=== PATIENT | male | born 1965 | race African-American/Black ===

== ENCOUNTER 2016-05-28 09:43 | Observation (INO) | payer SELFPAY ==
[2016-05-28] VITALS (11 sets, daily range): BP systolic 142–199; BP diastolic 78–120; PULSE 52–104; RESP 16–21; TEMP 98–98.2; O2SAT 95–99
[~2016-05-28] VITALS: Ht 180.3 cm; Wt 80.0 kg
[~2016-05-28 09:43] MED LIST: AMIT10TA13 PO; DILA8TAB4 PO; HCTZ50TA PO; HYDR-4197 PO; LORTA5 PO; METO50CR PO; METO50TA PO; MOBI7.5T PO; RANI75TA13 PO; ROBA750T3 PO; VALI10TA PO
--- NOTE | 2016-05-28 11:13 | PD ---
HPI Chief Complaint: Abdominal Pain Time Seen by Provider: 10:55 Travel History International Travel<30 days: No Contact w/Intl Traveler<30days: No Traveled to known affect area: No History of Present Illness HPI 50yo M with PMH of ?CAD, HTN, right inguinal hernia ( 7 months) presents to the ED with 2 complaints. Pt has been having nasal congestion, cough and tactile fever for 4 days. States that the coughing is causing his hernia to come out and now has pain in his abdomen. +NBNB vomiting yesterday. Pt also with left sided chest pain that is sharp, worst with exertion and better with rest. Pain is localized in left chest. Pt states he has a heart condition and used to see a ceramic artist years ago but has not seen one for this chest pain. PFSH Past Medical History Asthma: No Heart Rhythm Problems: No Cancer: No Cardiovascular Problems: Yes High Cholesterol: No Chest Pain: No Congestive Heart Failure: No COPD: No Diabetes: No Diminished Hearing: No Endocrine: No Gastrointestinal Disorders: No Genitourinary: No Hiatal Hernia: Yes Hypertension: Yes Immune Disorder: No Implanted Vascular Access Dvce: Yes Musculoskeletal: Yes Neurologic: No Psychiatric: No Reproductive: No Respiratory: No Immunizations Current: Yes Sleep Apnea: No Thyroid Disease: No Past Surgical History Abdominal Surgery: No AICD: No Body Medical Devices: PINS IN LEFT THUMB Cardiac Surgery: No Ear Surgery: No Endocrine Surgery: No Eye Surgery: No Genitourinary Surgery: No Gynecologic Surgery: No Joint Replacement: No Neurologic Surgery: No Oral Surgery: No Pacemaker: No Thoracic Surgery: No Other Surgery: Yes Social History Alcohol Use: Yes (seldom) Tobacco Use: Yes (OCCASIONALLY) Substance Use: Yes Allergies-Medications (Allergen,Severity, Reaction): Coded Allergies: No Known Allergies (Unverified , 05/28/16) Reported Meds & Prescriptions Reported Meds & Active Scripts Active Robaxin-750 (Methocarbamol) 750 Mg Tab 750 Mg PO Q6HR PRN Reported Hctz/Triamteren1 Ta1 1 Tab Tab Unknown Dose PO DAILY Metoprolol Tartrate 50 mg (Metoprolol Tartrate) 50 Mg Tab 50 Mg PO BID Dilaudid 8 mg (Hydromorphone HCl) 8 Mg Tab 8 Mg PO TID Review of Systems Except as stated in HPI: all other systems reviewed are Neg Physical Exam Narrative GEN: 50yo M not in distress. HEAD: Normocephalic, atraumatic. NECK: Trachea midline, no JVD. Skin: Warm and dry. CV: S1, S2. Lungs: CTA b/l, equal breath sounds. Abd: soft, +TTP epigastric region > RLQ and LLQ. No rebound tenderness or guarding. : Right inguinal hernia, soft. No penile discharge. Ext: Soft calf, no lower extremity edema. Data Data Last Documented VS Vital Signs Date Time Temp Pulse Resp B/P Pulse Ox O2 Delivery O2 Flow Rate FiO2 05/28/16 12:30 62 16 142/84 99 Room Air 05/28/16 09:46 98.0 Orders Complete Blood Count With Diff (05/28/16 11:06) Comprehensive Metabolic Panel (05/28/16 11:06) Lipase (05/28/16 11:06) Lactic Acid (05/28/16 11:06) Prothrombin Time / Inr (Pt) (05/28/16 11:06) Act Partial Throm Time (Ptt) (05/28/16 11:06) Urinalysis - C+S If Indicated (05/28/16 11:06) Ct Abd/Pel W Iv Contrast(Rout) (05/28/16 11:06) Iv Access Insert/Monitor (05/28/16 11:06) Ecg Monitoring (05/28/16 11:06) Oximetry (05/28/16 11:06) Sodium Chloride 0.9% Flush (Ns Flush) (05/28/16 11:15) Electrocardiogram (05/28/16 11:06) Chest, Single Ap (05/28/16 11:06) Ketorolac Inj (Toradol Inj) (05/28/16 11:15) Blood Culture (05/28/16 11:06) Influenzae A/B Antigen (05/28/16 11:06) Troponin I (05/28/16 11:25) Iohexol 350 Inj (Omnipaque 350 Inj) (05/28/16 14:07) Aspirin (Aspirin) (05/28/16 14:45) Admit Order (Ed Use Only) (05/28/16 14:44) Labs Laboratory Tests Test 05/28/16 05/28/16 11:45 13:54 White Blood Count 9.4 TH/MM3 Red Blood Count 4.44 MIL/MM3 Hemoglobin 14.6 GM/DL Hematocrit 42.7 % Mean Corpuscular Volume 96.1 FL Mean Corpuscular Hemoglobin 32.9 PG Mean Corpuscular Hemoglobin 34.2 % Concent Red Cell Distribution Width 13.9 % Platelet Count 239 TH/MM3 Mean Platelet Volume 8.2 FL Neutrophils (%) (Auto) 55.7 % Lymphocytes (%) (Auto) 32.5 % Monocytes (%) (Auto) 8.4 % Eosinophils (%) (Auto) 2.6 % Basophils (%) (Auto) 0.8 % Neutrophils # (Auto) 5.2 TH/MM3 Lymphocytes # (Auto) 3.0 TH/MM3 Monocytes # (Auto) 0.8 TH/MM3 Eosinophils # (Auto) 0.2 TH/MM3 Basophils # (Auto) 0.1 TH/MM3 CBC Comment DIFF FINAL Differential Comment Prothrombin Time 11.0 SEC Prothromb Time International 1.0 RATIO Ratio Activated Partial 33.2 SEC Thromboplast Time Sodium Level 141 MEQ/L Potassium Level 3.8 MEQ/L Chloride Level 104 MEQ/L Carbon Dioxide Level 29.9 MEQ/L Anion Gap 7 MEQ/L Blood Urea Nitrogen 6 MG/DL Creatinine 1.15 MG/DL Estimat Glomerular Filtration 81 ML/MIN Rate Random Glucose 93 MG/DL Lactic Acid Level 1.0 mmol/L Calcium Level 8.8 MG/DL Total Bilirubin 0.9 MG/DL Aspartate Amino Transf 18 U/L (AST/SGOT) Alanine Aminotransferase 25 U/L (ALT/SGPT) Alkaline Phosphatase 103 U/L Troponin I LESS THAN 0.02 NG/ML Total Protein 7.6 GM/DL Albumin 3.3 GM/DL Lipase 62 U/L Urine Color YELLOW Urine Turbidity CLEAR Urine pH 6.0 Urine Specific [place] 1.014 Urine Protein TRACE mg/dL Urine Glucose (UA) NEG mg/dL Urine Ketones NEG mg/dL Urine Occult Blood NEG Urine Nitrite NEG Urine Bilirubin NEG Urine Urobilinogen 4.0 MG/DL Urine Leukocyte Esterase MOD Urine RBC 1 /hpf Urine WBC 6 /hpf Urine Squamous Epithelial 1 /hpf Cells Urine Mucus FEW /lpf Microscopic Urinalysis Comment CULT NOT INDICATED MDM Medical Decision Making Medical Screen Exam Complete: Yes Emergency Medical Condition: Yes Interpretation(s) EKG: Sinus bradycardia at 55bpm. LAD. LAFB. TWI V5-V6. Unchanged from 2012. Differential Diagnosis Influenza vs. URI vs. PNA vs. ACS vs. pancreatitis vs. viral syndrome vs. incarcerated hernia Narrative Course 50yo M with left sided chest pain that is atypical but has risk factors such as HTN, former smoker and ?CAD. Pt has URI like symptoms as well. CXR showed no acute disease. CTa/p showed large inguinal hernia on right containing bowel that goes into scrotum. No other significant abnormality appreciated. I placed pt in trandelenberg position and was able to reduce his right inguinal hernia. Pt does not have any more pain after reduction. Labs reviewed, no leukocytosis. Troponin negative. Lactic acid 1.0. UA showed moderate leukocyte but WBC is only 6 and culture is not indicated. VS stable. From the inguinal hernia perspective, pt can be discharged with follow up with general surgery. However, I am concern with his chest pain that may be musculoskeletal from coughing but he does have risk factors and I would like to admit him for observation for chest pain. Pt agrees with plan. Diagnosis Primary Impression: Chest pain Qualified Code: R07.9 - Chest pain, unspecified type Admitting Information Admitting Physician Requests: Observation Patient Instructions: General Instructions Departure Forms: Tests/Procedures Additional Instructions: Please follow up with surgery clinic as outpatient for your inguinal hernia that has been reduced in the ED. Please return to the ED if symptoms worsen. Suzette Neri DO May 28, 2016 11:13 Admitting Physician Requests: Observation Suzette eNri DO May 28, 2016 11:13
[2016-05-28] MEDS ORDERED: KETOROLAC TROMETHAMINE 30 MG/ML (IVP) VIAL IVP ONE (11:15)
[2016-05-28] MEDS ORDERED: SODIUM CHLORIDE 0.9% FLUSH 5 ML FLUSH IVF PRN ×3 (11:15→16:15)
--- NOTE | 2016-05-28 12:04 | RADRPT ---
EXAM DATE/TIME: 05/28/2016 11:26 [facility] COMPARISON: CHEST SINGLE AP, February 08, 2015, 5:07. INDICATIONS : Chest pain, shortness of breath, and cough. MEDICAL HISTORY : None. SURGICAL HISTORY : None. ENCOUNTER: Initial ACUITY: 1 week PAIN SCORE: 2/10 LOCATION: chest FINDINGS: A single view of the chest demonstrates the lungs to be symmetrically aerated without evidence of mas s, infiltrate or effusion. The cardiomediastinal contours are unremarkable. Osseous structures are intact. CONCLUSION: No acute disease. Yury Le MD FACR on May 28, 2016 at 12:03 Board Certified Radiologist. This report was verified electronically.
[2016-05-28 12:14] LABS: AUTOMATED NEUTROPHIL # 5.2 TH/MM3 (1.8-7.7); BASOPHIL # 0.1 TH/MM3 (0-0.2); BASOPHIL % 0.8 % (0.0-2.0); EOSINOPHIL # 0.2 TH/MM3 (0-0.4); EOSINOPHIL % 2.6 % (0.0-4.0); HEMATOCRIT 42.7 % (39.0-51.0); HEMO FLAGS DIFF FINAL; LYMPH % 32.5 % (9.0-44.0); MEAN CELL VOLUME 96.1 FL (80.0-100.0); MEAN CORPUSCULAR HEMOGLOBIN 32.9 PG (27.0-34.0); MEAN CORPUSCULAR HGB CONC 34.2 % (32.0-36.0); MONO % 8.4 % (0.0-8.0); NEUT % 55.7 % (16.0-70.0); PLATELET COUNT 239 TH/MM3 (150-450); RED BLOOD COUNT 4.44 MIL/MM3 (4.50-5.90); RED CELL DISTRIBUTION WIDTH 13.9 % (11.6-17.2); WHITE BLOOD COUNT 9.4 TH/MM3 (4.0-11.0)
[2016-05-28 12:23] LABS: APTT (PATIENT) 33.2 SEC (24.3-30.1)
[2016-05-28 12:50] LABS: ALKALINE PHOSPHATASE 103 U/L (45-117); ALT (GPT) 25 U/L (12-78); ANION GAP 7 MEQ/L (5-15); AST (GOT) 18 U/L (15-37); BICARBONATE 29.9 MEQ/L (21.0-32.0); BLOOD UREA NITROGEN 6 MG/DL (7-18); CHLORIDE 104 MEQ/L (98-107); GLOMERULAR FILTRATION RATE 81 ML/MIN (>89); POTASSIUM 3.8 MEQ/L (3.5-5.1); SODIUM (NA) 141 MEQ/L (136-145); TOTAL BILIRUBIN ADULT 0.9 MG/DL (0.2-1.0)
[2016-05-28] MEDS ORDERED: IOHEXOL 350 MG/ML 10 ML VIAL (for RAD DIAG) IV ONE (14:07)
[2016-05-28 14:17] LABS: BLOOD, URINE NEG (NEG); GLUCOSE,URINE NEG (NEG); KETONE, URINE NEG (NEG); MUCUS URINE FEW /lpf (OCC); NITRITE,URINE NEG (NEG); SQUAMOUS EPITHELIAL CELL URINE 1 /hpf (0-5); URINE COLOR YELLOW (YELLW/STRAW)
--- NOTE | 2016-05-28 14:21 | RADRPT ---
EXAM DATE/TIME: 05/28/2016 13:52 [facility] COMPARISON: No previous studies available for comparison. INDICATIONS : Abdomen pain. IV CONTRAST: 90 cc Omnipaque 350 (iohexol) IV ORAL CONTRAST: No oral contrast ingested. RADIATION DOSE: 9.96 CTDIvol (mGy) MEDICAL HISTORY : Hernia, hiatal. Cerebrovascular disease. SURGICAL HISTORY : None. ENCOUNTER: Initial ACUITY: 1 day PAIN SCALE: 6/10 LOCATION: Bilateral abdomen. TECHNIQUE: Volumetric scanning of the abdomen and pelvis was performed. Using automated exposure control and adjustment of the mA and/or kV according to patient size, radiation dose was kept as low as reasonably achievable to obtain optimal diagnostic quality images. FINDINGS: The lung bases are clear. The liver is free of focal defects. Spleen, pancreas, adrenal glands and kidneys are unremarkable. There is symmetrical renal function. Right and left ureters pursue an unobstructed course through the abdomen. There is no ascites or roney nopathy appreciated. The patient does have a large hernia on the left containing bowel that extends into the scrotum. Thi s does not appear to be incarcerated. However, significant bowel is present within this. CONCLUSION: 1. Large inguinal hernia on the right containing bowel that goes into the scrotum. 2. No other significant abnormality is appreciated. Yury Le MD FACR on May 28, 2016 at 14:12 Board Certified Radiologist. This report was verified electronically.
[2016-05-28 14:24] LABS: COMMENT (UR) CULT NOT INDICATED; CULTURE IF INDICATED CULT NOT INDICATED
[2016-05-28] MEDS ORDERED: ASPIRIN 325 MG TAB PO ONE (14:45)
[2016-05-28] MEDS ORDERED: hydrALAZINE HCL 20 MG/ML VIAL IV PUSH ONE (16:00)
[2016-05-28] MEDS ORDERED: METOPROLOL TARTRATE 100 MG TAB PO ONE (16:00)
[2016-05-28] MEDS ORDERED: ACETAMINOPHEN 500 MG CPLT PO PRN (16:15)
[2016-05-28] MEDS ORDERED: ACETAMINOPHEN/HYDROcodone 325 MG/7.5 MG TAB PO PRN (16:15)
[2016-05-28] MEDS ORDERED: MORPHINE SULFATE 4 MG/ML INJ IV PUSH PRN (16:15)
[2016-05-28] MEDS ORDERED: ONDANSETRON HCL 4 MG/2 ML VIAL IV PRN (16:15)
[2016-05-28] MEDS ORDERED: RESP: ALBUTEROL 2.5 MG/IPRATROPIUM 0.5 MG NEB (SCH) INH ONE ×2 (16:15)
[2016-05-28] MEDS ORDERED: RESP: ALBUTEROL 2.5 MG/IPRATROPIUM 0.5 MG NEB (PRN) INH (16:15)
[2016-05-28] MEDS ORDERED: METHOCARBAMOL 500 MG TAB PO PRN (16:15)
[2016-05-28] MEDS ORDERED: ALPRAZolam 0.25 MG TAB PO PRN (16:15)
[2016-05-28] MEDS: PANTOPRAZOLE SOD 40 MG DELAYED RELEASE TAB PO SCH (16:28)
[2016-05-28] MEDS ORDERED: PILL SPLITTER OTHER PRN (16:30)
[2016-05-28] MEDS ORDERED: methylPREDNISolone SOD SUCC 125 MG/2 ML VIAL IV PUSH ONE (16:30)
[2016-05-28] MEDS ORDERED: DOXYCYCLINE HYCLATE 100 MG CAP PO ONE (16:30)
[2016-05-28 17:02] LABS: CREATINE KINASE 195 U/L (39-308)
[2016-05-28 17:15] LABS: CKMB 1.7 NG/ML (0.5-3.6)
[2016-05-28] MEDS ORDERED: amLODIPine BESYLATE 5 MG TAB PO ONE ×2 (18:30→23:00)
[2016-05-28 19:54] LABS: CREATINE KINASE 189 U/L (39-308)
[2016-05-28 20:06] LABS: CKMB 1.3 NG/ML (0.5-3.6)
[2016-05-28] MEDS ORDERED: SODIUM CHLORIDE 0.9% FLUSH 5 ML FLUSH IVF SCH (21:00)
[2016-05-28] MEDS ORDERED: METOPROLOL TARTRATE 50 MG TAB PO SCH (21:00)
--- NOTE | 2016-05-28 21:30 | EKG ---
Date Performed: 05/28/2016 Time Performed: 11:23:06 PTAGE: 50 years EKG: SINUS BRADYCARDIA LEFT ANTERIOR FASCICULAR BLOCK MODERATE T-WAVE ABNORMALITY MAY BE DUE TO LEFT VENTRICULAR HYPERTROPHY &/OR ISCHEMIA LEFT AXIS DEVIATION VOLTAGE FOR LEFT VENTRICULAR HYPERTROP HY ABNORMAL ECG PREVIOUS TRACING : 12/13/2012 16.17 DOCTOR: Franklin Dubois Interpretating Date/Time 05/28/2016 21:29:41
[2016-05-28] MEDS: SODIUM CHLORIDE 0.9% FLUSH 5 ML FLUSH IVF SCH (21:32)
--- NOTE | 2016-05-28 21:45 | EKG ---
Date Performed: 05/28/2016 Time Performed: 18:16:54 PTAGE: 50 years EKG: SINUS BRADYCARDIA LEFT ANTERIOR FASCICULAR BLOCK LEFT AXIS DEVIATION MODERATE T-WAVE ABNORM ALITY MAY BE DUE TO LEFT VENTRICULAR HYPERTROPHY &/OR ISCHEMIA VOLTAGE FOR LEFT VENTRICULAR HYPERTROP HY ABNORMAL ECG PREVIOUS TRACING : 05/28/2016 15.36 DOCTOR: Franklin Dubois Interpretating Date/Time 05/28/2016 21:44:06
[2016-05-28] MEDS ORDERED: cloNIDine HCL 0.2 MG TAB PO PRN (23:00)
[2016-05-28] MEDS: DOXYCYCLINE HYCLATE 100 MG TAB PO SCH (23:25)
[2016-05-29 00:35] VITALS: PULSE 64
[2016-05-29 04:00] VITALS: PULSE 60
[2016-05-29 04:40] VITALS: BP 164/78; PULSE 102; PULSE 74; RESP 18; TEMP 97.8; O2SAT 98
[2016-05-29 08:00] VITALS: BP 156/93; PULSE 50; PULSE 54; RESP 18; TEMP 98.2; O2SAT 93
[2016-05-29 08:37] VITALS: O2SAT 97
[2016-05-29] MEDS ORDERED: amLODIPine BESYLATE 5 MG TAB PO SCH (09:00)
[2016-05-29] MEDS ORDERED: ASPIRIN 325 MG TAB PO SCH (09:00)
[2016-05-29] MEDS ORDERED: TRIAMTERENE/HCTZ 37.5 MG/25 MG CAP PO SCH (09:00)
[2016-05-29] MEDS: SODIUM CHLORIDE 0.9% FLUSH 5 ML FLUSH IVF SCH ×2 (10:05→13:23)
[2016-05-29] MEDS: PANTOPRAZOLE SOD 40 MG DELAYED RELEASE TAB PO SCH (10:09)
[2016-05-29] MEDS ORDERED: REGADENOSON INJ 0.4 MG/5 ML SYR ONE (10:39)
[2016-05-29 11:42] VITALS: BP 178/98; PULSE 65; RESP 18; TEMP 98; O2SAT 94
--- NOTE | 2016-05-29 12:04 | RADRPT ---
EXAM DATE/TIME: 05/29/2016 10:22 [facility] COMPARISON: No previous studies available for comparison. INDICATIONS : Left sided chest pain. Angina. DOSE: 25.4 mCi Tc99m Myoview at stress. 8.5 mCi Tc99m Myoview at rest. 0.4 mg Lexiscan STRESS SYMPTOMS: Dyspnea and heart racing. EJECTION FRACTION: 60% MEDICAL HISTORY : Hypertension. Hernia, hiatal. SURGICAL HISTORY : Left thumb. ENCOUNTER: Initial ACUITY: 1 day PAIN SCALE: 6/10 LOCATION: Left chest TECHNIQUE: The patient underwent pharmacologic stress with infusion of prescribed dose. Continuous ECG tracing was monitored during stress. Gated SPECT imaging was performed after stress and conventional SPECT i maging was performed at rest. The examination was performed on a SPECT/CT scanner, both attenuation and non-corrected datasets were reviewed. FINDINGS: The best perfused myocardium is the septum followed by the inferior wall. Moderate gut activity does obscure a large portion of the inferior wall. There is no redistribution to suggest stress-induced ischemia. There are no fixed defects to suggest an infarction. Ejection fraction is calculated at 60%. CONCLUSION: 1. Negative for stress-induced ischemia. RISK CATEGORY: Low risk category. Yury Le MD FACR on May 29, 2016 at 11:57 Board Certified Radiologist. This report was verified electronically.
[2016-05-29] MEDS ORDERED: CLON.2 PO (12:25)
[2016-05-29] MEDS ORDERED: AMLO10TA2 PO (12:25)
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
--- NOTE | 2016-05-29 12:33 | TR ---
Date Performed: 05/29/2016 Time Performed: 10:50:53 DOCTOR: Franklin Dubois DRUG LIST: CLINICAL HISTORY: CHEST PAIN REASON FOR TEST: CHEST PAIN REASON FOR ENDING: OBSERVATION: CONCLUSION: Lexiscan stress test was performed under standard four minute protocol. Radionuclide was injected one minute prior to ending the test. Developed dyspnea and racing of the heart, blood p ressure was mildly elevated. Rare to occassional PACs were noted. No electrocardiographic abnormaliti es were present to suggest ischemia. Recovery was quick and uneventful with resolutiion of symptoms, systolic blood pressure remained mildly elevated. Nuclear imaging and interpretation are pending. COMMENTS:
[2016-05-29] MEDS: DOXYCYCLINE HYCLATE 100 MG TAB PO SCH (13:22)
--- NOTE | 2016-05-30 07:01 | EKG ---
Date Performed: 05/28/2016 Time Performed: 15:36:26 PTAGE: 50 years EKG: SINUS BRADYCARDIA WITH OCCASIONAL SUPRAVENTRICULAR PREMATURE COMPLEXES LEFT ANTERIOR FASCIC ULAR BLOCK MODERATE T-WAVE ABNORMALITY MAY BE DUE TO LEFT VENTRICULAR HYPERTROPHY &/OR ISCHEMIA LEFT AXIS DEVIATION VOLTAGE FOR LEFT VENTRICULAR HYPERTROPHY ABNORMAL ECG PREVIOUS TRACING : 05/28/2016 11.23 DOCTOR: Franklin Dubois Interpretating Date/Time 05/30/2016 07:00:32
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
== END 2016-05-29 17:07 | disposition home or self-care (01) ==
LOC: NEDAMB 09:43 → NEDA 14:46 → NEPHCDU 18:01
PROVIDERS: ADMIT Family Medicine; ATTEND Family Medicine
DX: R07.9 Chest pain, unspecified (principal); J40 Bronchitis, not specified as acute or chronic; I10 Essential (primary) hypertension; I25.10 Atherosclerotic heart disease of native coronary artery without angina pectoris; M54.9 Dorsalgia, unspecified; G89.29 Other chronic pain; K40.90 Unilateral inguinal hernia, without obstruction or gangrene, not specified as recurrent; F14.19 Cocaine abuse with unspecified cocaine-induced disorder; Z72.0 Tobacco use
CPT/HCPCS: 71010; 74177; 78452; 80053; 81001; 82550; 82552; 83605; 83690; 84484; 85025; 85610; 85730; 87040; 87804; 93005; 93017; 94664; 96374; 99285; A9502; G0378; J0360; J1885; J2270; J2785; J2930; Q9967

== ENCOUNTER 2017-02-26 15:07 | Inpatient (IN) | payer SELFPAY ==
[~2017-02-26] VITALS: Ht 180.3 cm; Wt 90.3 kg
[~2017-02-26 15:07] MED LIST changes: -AMIT10TA13 PO; +AMLO10TA2 PO; +CLON.2 PO; -HYDR-4197 PO; -LORTA5 PO; -METO50CR PO; -METO50TA PO; -MOBI7.5T PO; -RANI75TA13 PO; -VALI10TA PO
[2017-02-26 15:10] VITALS: BP 161/90; PULSE 70; RESP 16; TEMP 98.7; O2SAT 96
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
[2017-02-26 17:18] VITALS: BP 167/101; PULSE 62; RESP 16; O2SAT 97
[2017-02-26] MEDS ORDERED: KETOROLAC TROMETHAMINE 60 MG/2 ML (IM) VIAL IM ONE (17:30)
[2017-02-26] MEDS ORDERED: METO100T PO (17:58)
[2017-02-26] MEDS ORDERED: TRIA1CAP6 PO (17:58)
[2017-02-26] MEDS ORDERED: DILA8TAB4 PO (17:58)
[2017-02-26] MEDS ORDERED: MELO7.5T4 PO (17:58)
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
[2017-02-26 18:42] VITALS: BP 164/104; PULSE 65; RESP 17; O2SAT 96
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
[2017-02-26] MEDS ORDERED: LACTULOSE SYRUP 20 GM/30 ML CUP PO PRN (19:30)
[2017-02-26] MEDS ORDERED: ONDANSETRON HCL 4 MG/2 ML VIAL IVP PRN (19:30)
[2017-02-26] MEDS ORDERED: SENNOSIDES 8.6 MG TAB PO PRN (19:30)
[2017-02-26] MEDS ORDERED: MAGNESIUM HYDROXIDE SUSP 30 ML CUP PO PRN (19:30)
[2017-02-26] MEDS ORDERED: SODIUM CHLORIDE 0.9% FLUSH 10 ML FLUSH IV FLUSH PRN (19:30)
[2017-02-26] MEDS ORDERED: MORPHINE SULFATE 4 MG/ML INJ IV PUSH PRN (19:30)
[2017-02-26] MEDS ORDERED: BISACODYL 10 MG SUPP RECTAL PRN (19:30)
[2017-02-26] MEDS ORDERED: ACETAMINOPHEN 1000 MG/100 ML 100 ML IV PRN (19:30)
[2017-02-26] MEDS: MORPHINE SULFATE 4 MG/ML INJ IV PUSH PRN (19:55)
[2017-02-26] MEDS: SODIUM CHLOR 0.9% 1000 ML INJ 1,000 ML IV SCH (19:55)
[2017-02-26 20:07] LABS: AUTOMATED NEUTROPHIL # 2.9 TH/MM3 (1.8-7.7); BASOPHIL # 0.1 TH/MM3 (0-0.2); BASOPHIL % 0.7 % (0.0-2.0); EOSINOPHIL # 0.5 TH/MM3 (0-0.4); EOSINOPHIL % 6.4 % (0.0-4.0); HEMATOCRIT 39.1 % (39.0-51.0); HEMO FLAGS DIFF FINAL; LYMPH % 46.5 % (9.0-44.0); LYMPHOCYTE # 3.4 TH/MM3 (1.0-4.8); MEAN CELL VOLUME 97.5 FL (80.0-100.0); MEAN CORPUSCULAR HEMOGLOBIN 32.5 PG (27.0-34.0); MEAN CORPUSCULAR HGB CONC 33.3 % (32.0-36.0); MONO % 6.2 % (0.0-8.0); NEUT % 40.2 % (16.0-70.0); PLATELET COUNT 231 TH/MM3 (150-450); RED BLOOD COUNT 4.01 MIL/MM3 (4.50-5.90); RED CELL DISTRIBUTION WIDTH 14.4 % (11.6-17.2); WHITE BLOOD COUNT 7.3 TH/MM3 (4.0-11.0)
[2017-02-26 20:19] LABS: INTERNATIONAL NORMALIZED RATIO 0.9 RATIO; PROTHROMBIN TIME - PATIENT 10.2 SEC (9.8-11.6)
[2017-02-26 20:40] VITALS: BP 178/97; PULSE 62; RESP 18; TEMP 97.3; O2SAT 96
[2017-02-26 20:48] LABS: ALT (GPT) 30 U/L (12-78)
[2017-02-26 20:50] LABS: ALKALINE PHOSPHATASE 112 U/L (45-117); ANION GAP 6 MEQ/L (5-15); AST (GOT) 37 U/L (15-37); BICARBONATE 25.8 MEQ/L (21.0-32.0); BLOOD UREA NITROGEN 14 MG/DL (7-18); CHLORIDE 105 MEQ/L (98-107); GLOMERULAR FILTRATION RATE 79 ML/MIN (>89); SODIUM (NA) 137 MEQ/L (136-145); TOTAL BILIRUBIN ADULT 0.5 MG/DL (0.2-1.0)
[2017-02-26] MEDS: DOCUSATE SODIUM 50 MG/SENNA 8.6 MG TAB PO SCH (21:25)
[2017-02-26] MEDS: SODIUM CHLORIDE 0.9% FLUSH 10 ML FLUSH IV FLUSH SCH (21:25)
[2017-02-26] MEDS ORDERED: POVIDONE IODINE 5% (ANTISEPSIS KIT) 4 APPLICATIONS EACH NARE PRN (22:15)
[2017-02-26] MEDS ORDERED: INSULIN HUMAN REGULAR 1,000 UNITS/10 ML VIAL SQ PRN (22:15)
[2017-02-26] MEDS ORDERED: LACTATED RINGER'S 1000 ML IV PRN (22:15)
[2017-02-26] MEDS ORDERED: CHLORHEXIDINE GLUCONATE 2 % 1 PACK (2 CLOTHS) TOPICAL PRN (22:15)
[2017-02-26] MEDS ORDERED: NIFEdipine 30 MG SUSTAINED RELEASE TAB PO ONE (22:45)
[2017-02-26] MEDS ORDERED: NIFEdipine 60 MG SUSTAINED RELEASE TAB PO ONE (22:45)
[2017-02-27] VITALS (8 sets, daily range): BP systolic 130–180; BP diastolic 82–98; PULSE 52–64; RESP 17–18; TEMP 96.2–96.8; O2SAT 97–98
[2017-02-27] MEDS: MORPHINE SULFATE 4 MG/ML INJ IV PUSH PRN ×4 (00:23→23:09)
[2017-02-27] MEDS ORDERED: ENALAPRILAT 2.5 MG/2 ML VIAL IV PUSH ONE (01:00)
[2017-02-27] MEDS: SODIUM CHLOR 0.9% 1000 ML INJ 1,000 ML IV SCH ×3 (05:01→20:31)
[2017-02-27] MEDS: SODIUM CHLORIDE 0.9% FLUSH 10 ML FLUSH IV FLUSH SCH ×2 (07:41→23:09)
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
[2017-02-27] MEDS: DOCUSATE SODIUM 50 MG/SENNA 8.6 MG TAB PO SCH ×2 (10:10→21:00)
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
[2017-02-27] MEDS ORDERED: NEOSTIGMINE 3 MG/3 ML SYR IV ONE (12:00)
[2017-02-27] MEDS ORDERED: LIDOCAINE HCL 1% PF 5 ML AMPULE OTHER ONE (12:00)
[2017-02-27] MEDS ORDERED: ONDANSETRON HCL 4 MG/2 ML VIAL IV PUSH ONE (12:00)
[2017-02-27] MEDS ORDERED: GLYCOPYRROLATE 1 MG/5 ML SYRINGE IV PUSH ONE (12:00)
[2017-02-27] MEDS ORDERED: ROCURONIUM INJ 50 MG/5 ML SYRINGE IV PUSH ONE (12:00)
[2017-02-27] MEDS ORDERED: LACTATED RINGER'S 1000 ML INJ 1,000 ML IV ONE (12:00)
[2017-02-27] MEDS ORDERED: PROPOFOL 200 MG/20 ML AMP IV ONE (12:00)
[2017-02-27] MEDS ORDERED: MIDAZOLAM HCL 2 MG/2 ML VIAL IV ONE (12:00)
[2017-02-27] MEDS ORDERED: DEXAMETHASONE SOD PHOS 4 MG/ML VIAL IV ONE (12:00)
[2017-02-27] MEDS ORDERED: KETOROLAC TROMETHAMINE 30 MG/ML (IVP) VIAL IV PUSH ONE (12:00)
--- NOTE | 2017-02-27 12:51 | EKG ---
Date Performed: 02/26/2017 Time Performed: 22:01:14 PTAGE: 51 years EKG: SINUS BRADYCARDIA POSSIBLE RIGHT VENTRICULAR CONDUCTION DELAY LEFT ANTERIOR FASCICULAR BLOC K SEPTAL MYOCARDIAL INFARCTION , OF INDETERMINATE AGE MODERATE T-WAVE ABNORMALITY, CONSIDER ANTEROLAT ERAL ISCHEMIA MODERATE T-WAVE ABNORMALITY, CONSIDER INFERIOR ISCHEMIA ABNORMAL ECG Compared to prior tracing no significant change PREVIOUS TRACING : 05/28/2016 18.16 DOCTOR: Trav Flores Interpretating Date/Time 02/27/2017 12:50:44
[2017-02-27] MEDS ORDERED: CHLORHEXIDINE GLUCONATE 0.12% 15 ML CUP ONE (17:24)
[2017-02-27] MEDS ORDERED: ceFAZolin INJ 1,000 MG VIAL ONE (17:24)
[2017-02-27] MEDS ORDERED: BACITRACIN TOP OINT 15 GM TUBE ONE (17:25)
[2017-02-27] MEDS ORDERED: PHENYLEPHRINE HCL 0.25% NASAL SPRAY 15 ML BTL ONE (18:10)
[2017-02-27] MEDS ORDERED: ACETAMINOPHEN 1000 MG/100 ML 100 ML IV ONE (18:15)
[2017-02-27] MEDS ORDERED: HYDROmorphone HCL PF 2 MG/ML VIAL ONE (18:43)
[2017-02-27] MEDS ORDERED: LIDOCAINE 2%/EPINEPHrine PF 1:200,000 20ML SDV INFIL ONE (18:49)
--- NOTE | 2017-02-27 19:47 | HHI.PR ---
Immediate Post Op Note Procedure Date: Feb 27, 2017 Pre Op Diagnosis: left mandible - subcondylar fracture Post Op Diagnosis: sherley Surgeon: Lauri Pastrana Well Reactivator Operator(s): jyothi sanchez Procedure: closed reduction of left mandible - subcondylar fracture Complications: none Specimen(s) removed: none Estimated blood loss: 5cc Anesthesia: General, Local (2%lidocaine with 1:200,000 epi 5 cc) Drains: None Patient to: PACU Patient Condition: Good Date/Time of Procedure: SEE SURGICAL CARE RECORD Lauri Pastrana DMD Feb 27, 2017 19:47
[2017-02-27] MEDS ORDERED: DO NOT ADM ANY ANTICOAGULANT DRUGS PRN (20:15)
[2017-02-27] MEDS ORDERED: HYDROmorphone HCL PF 1 MG/ML VIAL IV PRN (20:15)
[2017-02-27] MEDS ORDERED: hydrALAZINE HCL 20 MG/ML VIAL IV PRN (20:15)
[2017-02-27] MEDS ORDERED: methylPREDNISolone SOD SUCC 125 MG/2 ML VIAL IV ONE (21:00)
[2017-02-27] MEDS ORDERED: diphenhydrAMINE HCL 50 MG/ML VIAL IV PUSH PRN (23:15)
[2017-02-28] MEDS ORDERED: HYDROmorphone HCL PF 1 MG/ML VIAL IV PUSH ONE (00:15)
[2017-02-28] MEDS: MORPHINE SULFATE 4 MG/ML INJ IV PUSH PRN ×4 (03:16→11:22)
[2017-02-28 03:25] VITALS: O2SAT 95
[2017-02-28 04:00] VITALS: BP 161/90; PULSE 59; RESP 17; TEMP 96.4; O2SAT 96
--- NOTE | 2017-02-28 07:46 | HHI.PR ---
Subjective Remarks POD 1 s/p closed reduction of left mandible subcondylar fracture pt seen and examined aaox3, nad , reports soreness tolerating po Objective Vital Signs Date Time Temp Pulse Resp B/P (MAP) Pulse Ox O2 Delivery O2 Flow Rate FiO2 02/28/17 04:00 96.4 59 17 161/90 (113) 96 02/28/17 03:25 95 02/27/17 21:15 96.2 62 17 156/83 (107) 98 02/27/17 20:32 59 11 173/96 (121) 98 Nasal Cannula 4 02/27/17 20:30 55 15 175/110 (131) 98 Nasal Cannula 4 02/27/17 20:15 60 9 183/103 (129) 91 Nasal Cannula 4 02/27/17 20:00 51 9 159/97 (117) 98 Simple Mask 10 02/27/17 19:45 54 8 162/97 (118) 97 Simple Mask 10 02/27/17 19:41 97.5 58 10 177/101 (126) 95 Simple Mask 10 02/27/17 16:00 96.4 57 17 153/90 (111) 98 02/27/17 11:45 96.4 64 17 158/94 (115) 98 02/27/17 08:03 96.6 62 17 130/82 (98) 97 I/O 02/27/17 02/27/17 02/27/17 02/28/17 02/28/17 02/28/17 07:00 15:00 23:00 07:00 15:00 23:00 Intake Total 737 ml 1000 ml 1700 ml 560 ml Output Total 500 ml 5 ml 450 ml Balance 237 ml 1000 ml 1695 ml 110 ml Intake Oral 0 ml 0 ml 560 ml IV Total 737 ml 1000 ml 1000 ml Other 700 ml Output Urine Total 500 ml 450 ml Other 5 ml # Voids 4 # Bowel Movements 0 0 Result Diagram: 02/26/17 1950 02/26/171949 Objective Remarks mild left facial edema intraorally, tissues pink/well perfused bite in occlusion, arch arch bars and wires in position no edema/heme noted wire cutters noted - taped to head of bed/wall Assessment and Plan Assessment and Plan pod 1 s/p closed reduction left mandible subcondylar fracture f/up dr pastrana 1 week [facility]*- send pt home with wire cutters wires cutters with pt at all times for emergency airway management maintain good oral hygiene full liquid diet ice left face - 20 min on 20 min off x 24 hrs d/c rx - hydrocodone 7.5/325 per 15 ml - 15 ml po q 6 h prn pain 200 ml (in chart) Lauri Pastrana DMD Feb 28, 2017 07:46
[2017-02-28] MEDS: DOCUSATE SODIUM 50 MG/SENNA 8.6 MG TAB PO SCH (07:47)
[2017-02-28] MEDS: SODIUM CHLORIDE 0.9% FLUSH 10 ML FLUSH IV FLUSH SCH (07:47)
[2017-02-28] MEDS: METOPROLOL TARTRATE 100 MG TAB PO SCH ×2 (09:00→15:19)
[2017-02-28] MEDS ORDERED: cloNIDine HCL 0.1 MG TAB PO PRN (09:00)
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
[2017-02-28 10:00] VITALS: BP 169/102; PULSE 66; RESP 18; TEMP 96.7; O2SAT 98
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
[2017-02-28] MEDS ORDERED: METO-338 PO (11:20)
[2017-02-28] MEDS ORDERED: TRIA1CAP6 PO (11:20)
[2017-02-28] MEDS ORDERED: PERI8.6T PO (11:23)
[2017-02-28] MEDS ORDERED: PERI0.126 SWISH-SPIT (11:23)
[2017-02-28] MEDS ORDERED: MORP1SOL3 PO (11:23)
[2017-02-28] MEDS: SODIUM CHLOR 0.9% 1000 ML INJ 1,000 ML IV SCH (11:30)
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
[2017-02-28] MEDS ORDERED: [UNRECOGNIZED DRUG - SUPPLY] (11:51)
[2017-02-28 12:00] VITALS: BP 183/100; PULSE 73; RESP 18; TEMP 95.9; O2SAT 96
[2017-02-28 16:26] VITALS: BP 195/109; PULSE 59; RESP 16; TEMP 97.1; O2SAT 97
[2017-02-28 18:07] VITALS: BP 180/85
== END 2017-02-28 19:45 | disposition home or self-care (01) | DRG 158 ==
LOC: NEPD 15:07 → NEDA 19:07 → OBSVTOIN 19:18 → N06B 20:15
PROVIDERS: ADMIT Hospitalist; ATTEND Hospitalist
PROC: 0NSV35Z Reposition Left Mandible with External Fixation Device, Percutaneous Approach (ICD-10-PCS; principal; 2017-02-27 18:18)
DX: S02.622A Fracture of subcondylar process of left mandible, initial encounter for closed fracture (principal); S06.0X1A Concussion with loss of consciousness of 30 minutes or less, initial encounter; I10 Essential (primary) hypertension; Y04.2XXA Assault by strike against or bumped into by another person, initial encounter; F17.210 Nicotine dependence, cigarettes, uncomplicated; K02.9 Dental caries, unspecified; Y04.0XXA Assault by unarmed brawl or fight, initial encounter
CPT/HCPCS: 70450; 70486; 80053; 85025; 85610; 93005; 96374; 96376; J0131; J0360; J0690; J1100; J1170; J1200; J1885; J2250; J2270; J2405; J2710; J2930; J3010; J7030; J7120

== ENCOUNTER 2017-08-04 18:31 | Emergency (ER) | payer SELFPAY ==
[~2017-08-04] VITALS: Ht 180.3 cm; Wt 91.0 kg
[~2017-08-04 18:31] MED LIST changes: -AMLO10TA2 PO; -CLON.2 PO; -HCTZ50TA PO; +MELO7.5T27 PO; +METO-338 PO; +MORP1SOL3 PO; +PERI0.126 SWISH-SPIT; +PERI8.6T PO; -ROBA750T3 PO; +TRIA1CAP6 PO; +[UNRECOGNIZED DRUG - SUPPLY]
[2017-08-04] MEDS ORDERED: IOHEXOL 350 MG/ML 10 ML VIAL (for RAD DIAG) IVCONTRAST ONE (18:32)
[2017-08-04 19:08] VITALS: BP 187/93; PULSE 58; RESP 16; TEMP 98.6; O2SAT 97
[2017-08-04] MEDS ORDERED: TIZA4CAP3 PO (20:46)
[2017-08-04] MEDS ORDERED: SODIUM CHLOR 0.9% 1000 ML INJ 1,000 ML IV SCH (20:50)
--- NOTE | 2017-08-04 20:58 | PD ---
HPI Chief Complaint: Abdominal Pain Time Seen by Provider: 20:43 Travel History International Travel<30 days: No Contact w/Intl Traveler<30days: No Traveled to known affect area: No History of Present Illness HPI 52-year-old male here for evaluation of pain an increasing size of his right inguinal hernia. He states he is usually able to reduce the hernia, however today he noticed that it is significantly larger and he is not able to fully reduce it. He states it is affecting his ability to urinate. He feels nauseous. He has not vomited. Last bowel movement was 2 days ago. Pain is severe, constant, worse with movement and palpation. He denies history of abdominal surgeries. PFSH Past Medical History Asthma: No Heart Rhythm Problems: No Cancer: No Cardiovascular Problems: Yes High Cholesterol: No Chest Pain: No Congestive Heart Failure: No COPD: No Diabetes: No Diminished Hearing: No Endocrine: No Gastrointestinal Disorders: No Genitourinary: No Hiatal Hernia: Yes Hypertension: Yes Immune Disorder: No Implanted Vascular Access Dvce: Yes Musculoskeletal: Yes Neurologic: No Psychiatric: No Reproductive: No Respiratory: No Immunizations Current: Yes Sleep Apnea: No Thyroid Disease: No Tetanus Vaccination: Unknown Influenza Vaccination: No Past Surgical History Abdominal Surgery: No AICD: No Body Medical Devices: PINS IN LEFT THUMB Cardiac Surgery: No Ear Surgery: Yes (EYEDRUM SURGERY) Endocrine Surgery: No Eye Surgery: No Genitourinary Surgery: No Gynecologic Surgery: No Joint Replacement: No Neurologic Surgery: No Oral Surgery: No Pacemaker: No Thoracic Surgery: No Social History Alcohol Use: Yes (RARELY) Tobacco Use: No Substance Use: No Allergies-Medications (Allergen,Severity, Reaction): Coded Allergies: No Known Allergies (Unverified Adverse Reaction, Unknown, 08/04/17) Reported Meds & Prescriptions Reported Meds & Active Scripts Active Lopressor (Metoprolol Tartrate) 100 Mg Tab 100 Mg PO BID Dyrenium (Triamterene) 50 Mg Cap 25 Mg PO DAILY Reported Tizanidine (Tizanidine HCl) 4 Mg Cap 4 Mg PO BID Dilaudid (Hydromorphone HCl) 8 Mg Tab 8 Mg PO Q6H PRN Meloxicam 7.5 Mg Tab 7.5 Mg PO DIRECTED Review of Systems Except as stated in HPI: all other systems reviewed are Neg Physical Exam Narrative GENERAL: Well-developed, well-nourished, comfortable, mild distress secondary to pain. SKIN: Focused skin assessment warm/dry. HEAD: Atraumatic. Normocephalic. EYES: Pupils equal and round. No scleral icterus. No injection or drainage. ENT: Mucous membranes pink and moist. NECK: Trachea midline. No JVD. CARDIOVASCULAR: Regular rate and rhythm. No murmur appreciated. RESPIRATORY: No accessory muscle use. Clear to auscultation. Breath sounds equal bilaterally. GASTROINTESTINAL: Abdomen soft, non-tender, nondistended. : Large right indirect inguinal hernia that is partially reducible, soft, moderately tender. The rest of the exam is within normal limits. No skin color changes. No crepitus. MUSCULOSKELETAL: No obvious deformities. No clubbing. No cyanosis. No edema. NEUROLOGICAL: Awake and alert. No obvious cranial nerve deficits. Motor grossly within normal limits. Normal speech. PSYCHIATRIC: Appropriate mood and affect; insight and judgment normal. Data Data Last Documented VS Vital Signs Date Time Temp Pulse Resp B/P (MAP) Pulse Ox O2 Delivery O2 Flow Rate FiO2 08/04/17 22:55 59 16 187/112 (137) 98 Room Air 08/04/17 19:08 98.6 Orders Orders Complete Blood Count With Diff (08/04/17 20:50) Comprehensive Metabolic Panel (08/04/17 20:50) Lactic Acid (08/04/17 20:50) Prothrombin Time / Inr (Pt) (08/04/17 20:50) Act Partial Throm Time (Ptt) (08/04/17 20:50) Iv Access Insert/Monitor (08/04/17 20:50) Ecg Monitoring (08/04/17 20:50) Oximetry (08/04/17 20:50) Sodium Chlor 0.9% 1000 Ml Inj (Ns 1000 M (08/04/17 20:50) Sodium Chloride 0.9% Flush (Ns Flush) (08/04/17 21:00) Morphine Inj (Morphine Inj) (08/04/17 21:00) Ct Abd/Pel W Iv Contrast(Rout) (08/04/17 20:51) Morphine Inj (Morphine Inj) (08/04/17 22:00) Iohexol 350 Inj (Omnipaque 350 Inj) (08/04/17 18:32) Labs Laboratory Tests Test 3/16/18 21:05 White Blood Count 7.8 TH/MM3 Red Blood Count 4.15 MIL/MM3 Hemoglobin 13.5 GM/DL Hematocrit 39.8 % Mean Corpuscular Volume 95.8 FL Mean Corpuscular Hemoglobin 32.6 PG Mean Corpuscular Hemoglobin Concent 34.0 % Red Cell Distribution Width 13.9 % Platelet Count 257 TH/MM3 Mean Platelet Volume 7.6 FL Neutrophils (%) (Auto) 44.8 % Lymphocytes (%) (Auto) 43.5 % Monocytes (%) (Auto) 6.1 % Eosinophils (%) (Auto) 4.5 % Basophils (%) (Auto) 1.1 % Neutrophils # (Auto) 3.5 TH/MM3 Lymphocytes # (Auto) 3.4 TH/MM3 Monocytes # (Auto) 0.5 TH/MM3 Eosinophils # (Auto) 0.3 TH/MM3 Basophils # (Auto) 0.1 TH/MM3 CBC Comment DIFF FINAL Differential Comment Prothrombin Time 10.1 SEC Prothromb Time International Ratio 1.0 RATIO Activated Partial Thromboplast Time 28.2 SEC Blood Urea Nitrogen 14 MG/DL Creatinine 1.25 MG/DL Random Glucose 149 MG/DL Total Protein 7.2 GM/DL Albumin 3.6 GM/DL Calcium Level 9.4 MG/DL Alkaline Phosphatase 104 U/L Aspartate Amino Transf (AST/SGOT) 26 U/L Alanine Aminotransferase (ALT/SGPT) 35 U/L Total Bilirubin 0.3 MG/DL Sodium Level 140 MEQ/L Potassium Level 4.3 MEQ/L Chloride Level 104 MEQ/L Carbon Dioxide Level 28.2 MEQ/L Anion Gap 8 MEQ/L Estimat Glomerular Filtration Rate 73 ML/MIN Lactic Acid Level 2.0 mmol/L [facility] Medical Decision Making Medical Screen Exam Complete: Yes Emergency Medical Condition: Yes Differential Diagnosis Right inguinal hernia: Strangulated versus incarcerated Narrative Course The patient has a large right inguinal hernia that I am unable to reduce completely on initial exam. Ice bag applied and the patient was given pain medication, and about 30 minutes later I attempted to reduce the hernia once again and was unable to completely reduce it. Initial vital signs show heart rate 58, blood pressure 187/93, pulse ox 97% on room air, oral temperature 98.6F. CBC: WBC 7.8, hemoglobin 13.5, hematocrit 39.8, platelets 257. CMP is unremarkable. Lactic acid is 2.0. CT abdomen pelvis: CONCLUSION: Right inguinal hernia containing small bowel and the appendix with mild induration but no obstruction. Increasing right-sided hydrocele. I have attempted to reduce the hernia on 3 separate occasions, however, have been unsuccessful in reducing the entire hernia. 10:55 PM: Case discussed with on-call general surgeon Dr. Neumann who states he will present to the emergency department and attempt to reduce the hernia himself. General surgeon Dr. Neumann was able to reduce the patient's inguinal hernia and states he is stable for discharge home with outpatient follow-up. The patient takes 8 mg of Dilaudid 3 times a day for chronic back pain and occasionally has constipation. I will start him on Colace. Patient was also advised to purchase a truss and wear it. He is advised on when to return to the emergency department. He verbalizes understanding and agreement with plan. Diagnosis Primary Impression: Reducible right inguinal hernia Referrals: Marquis Neumann MD Primary Care Physician 3 days Additional Instructions: Follow-up with your primary care physician this week. Follow-up with general surgeon Dr. Neumann. Purchase a truss (jock strap) and where it to prevent your hernia from coming out. Return to the emergency department for worsening symptoms or any other concerns. Scripts Docusate Sodium (Colace) 100 Mg Capsule 100 MG PO BID for Prevent Constipation, #60 CAP 0 Refills Prov: Khadar Corrigan MD 08/04/17 Disposition: 01 DISCHARGE HOME Condition: Stable Khadar Corrigan MD Aug 04, 2017 20:58
[2017-08-04] MEDS ORDERED: SODIUM CHLORIDE 0.9% FLUSH 10 ML FLUSH IV FLUSH PRN (21:00)
[2017-08-04] MEDS ORDERED: MORPHINE SULFATE 2 MG/ML INJ IV PUSH ONE ×2 (21:00→22:00)
[2017-08-04 21:13] VITALS: O2SAT 99
[2017-08-04 21:16] VITALS: BP 173/95; PULSE 64; RESP 18; O2SAT 99
[2017-08-04 21:21] VITALS: BP 169/92; PULSE 60; RESP 18; O2SAT 100
[2017-08-04 21:25] LABS: AUTOMATED NEUTROPHIL # 3.5 TH/MM3 (1.8-7.7); BASOPHIL # 0.1 TH/MM3 (0-0.2); BASOPHIL % 1.1 % (0.0-2.0); EOSINOPHIL # 0.3 TH/MM3 (0-0.4); EOSINOPHIL % 4.5 % (0.0-4.0); HEMATOCRIT 39.8 % (39.0-51.0); HEMOGLOBIN 13.5 GM/DL (13.0-17.0); LYMPH % 43.5 % (9.0-44.0); LYMPHOCYTE # 3.4 TH/MM3 (1.0-4.8); MEAN CELL VOLUME 95.8 FL (80.0-100.0); MEAN CORPUSCULAR HEMOGLOBIN 32.6 PG (27.0-34.0); MEAN PLATELET VOLUME 7.6 FL (7.0-11.0); MONO % 6.1 % (0.0-8.0); MONOCYTE # 0.5 TH/MM3 (0-0.9); NEUT % 44.8 % (16.0-70.0); PLATELET COUNT 257 TH/MM3 (150-450); RED BLOOD COUNT 4.15 MIL/MM3 (4.50-5.90); RED CELL DISTRIBUTION WIDTH 13.9 % (11.6-17.2); WHITE BLOOD COUNT 7.8 TH/MM3 (4.0-11.0)
[2017-08-04 21:36] LABS: PROTHROMBIN TIME - PATIENT 10.1 SEC (9.8-11.6)
[2017-08-04 21:42] LABS: ALKALINE PHOSPHATASE 104 U/L (45-117); ALT (GPT) 35 U/L (12-78); TOTAL BILIRUBIN ADULT 0.3 MG/DL (0.2-1.0); TOTAL PROTEIN 7.2 GM/DL (6.4-8.2)
[2017-08-04 21:52] LABS: ALBUMIN 3.6 GM/DL (3.4-5.0); AST (GOT) 26 U/L (15-37); BICARBONATE 28.2 MEQ/L (21.0-32.0); BLOOD UREA NITROGEN 14 MG/DL (7-18); CALCIUM 9.4 MG/DL (8.5-10.1); CHLORIDE 104 MEQ/L (98-107); CREATININE 1.25 MG/DL (0.60-1.30); GLOMERULAR FILTRATION RATE 73 ML/MIN (>89); GLUCOSE,RANDOM 149 MG/DL (74-106); SODIUM (NA) 140 MEQ/L (136-145)
[2017-08-04 22:32] VITALS: BP 167/98; PULSE 60; RESP 17; O2SAT 98
--- NOTE | 2017-08-04 22:43 | RADRPT ---
EXAM DATE/TIME: 08/04/2017 22:22 [facility] COMPARISON: CT ABDOMEN & PELVIS W CONTRAST, May 28, 2016, 13:52. INDICATIONS : Increasing size of right inguinal hernia. IV CONTRAST: 11.88 cc Omnipaque 350 (iohexol) IV ORAL CONTRAST: No oral contrast ingested. RADIATION DOSE: 100 CTDIvol (mGy) MEDICAL HISTORY : Hypertension. SURGICAL HISTORY : None. ENCOUNTER: Initial ACUITY: 1 day PAIN SCALE: 5/10 LOCATION: pelvis TECHNIQUE: Volumetric scanning of the abdomen and pelvis was performed. Using automated exposure control and ad justment of the mA and/or kV according to patient size, radiation dose was kept as low as reasonably achievable to obtain optimal diagnostic quality images. DICOM format image data is available electro nically for review and comparison. FINDINGS: LOWER LUNGS: The visualized lower lungs are clear. LIVER: Homogeneous density without lesion. There is no dilation of the biliary tree. No calcified gallston es. SPLEEN: Normal size without lesion. PANCREAS: Within normal limits. KIDNEYS: Normal in size and shape. There is no mass, stone or hydronephrosis. ADRENAL GLANDS: Within normal limits. VASCULAR: There is no aortic aneurysm. BOWEL/MESENTERY: The stomach, small bowel, and colon demonstrate no acute abnormality. There is no free intraperitone al air or fluid. ABDOMINAL WALL: Within normal limits. RETROPERITONEUM: There is no lymphadenopathy. BLADDER: No wall thickening or mass. REPRODUCTIVE: Within normal limits. INGUINAL: A right inguinal hernia is again noted. The defect measures approximately 31 mm across. Loops of dist al ileum and the appendix are present in the hernia sac. The small bowel loops appear mildly indurate d. The fat within the hernia sac appears more indurated than previous. No appendicitis changes are de monstrated. There is a large hydrocele present on the right, new or at least increased in the interim . MUSCULOSKELETAL: Within normal limits for patient age. CONCLUSION: Right inguinal hernia containing small bowel and the appendix with mild induration but no obstruction . Increasing right-sided hydrocele. Daniel Pina MD on August 04, 2017 at 22:37 Board Certified Radiologist. This report was verified electronically.
[2017-08-04 22:55] VITALS: BP 187/112; PULSE 59; RESP 16; O2SAT 98
[2017-08-04] MEDS ORDERED: COLA100C5 PO (23:37)
--- NOTE | 2017-08-05 00:16 | MB ---
cc: Marquis Neumann MD DATE OF CONSULT: 08/04/2017 REASON FOR CONSULTATION: Incarcerated right inguinal hernia. HISTORY OF PRESENT ILLNESS: The patient is a 52-year-old male who was seen in the emergency department today for right inguinal hernia that he was not able to reduce the hernia. He also reports that it was probably not reducible yesterday either. He did report a bowel movement yesterday. The patient reports that he has had the hernia for many years. It is not clear why he has not sought health care for this. PAST MEDICAL HISTORY: Significant for cardiovascular problems, hypertension, hiatal hernia, and implanted devices in the left thumb. The patient has also had eardrum surgery in the past. SOCIAL HISTORY: The patient rarely uses alcohol. He does not smoke or use other meds. ALLERGIES: HE HAS NO KNOWN ALLERGIES. MEDICATIONS: Currently include Lopressor 100 mg p.o. b.i.d. and triamterene 50 mg tablets 25 mg every day. The patient has used meloxicam in the past, tizanidine 4 mg b.i.d. and Dilaudid 8 mg tabs q. 6 hours p.r.n. LABORATORY DATA: Demonstrate WBC of 7.8. BUN and creatinine are 14 and 1.25. Glucose is 149. IMAGING: Demonstrates a right inguinal hernia with small bowel and appendix with mild induration, but no obstruction increasing right-sided hydrocele. PHYSICAL EXAMINATION: GENERAL: Reveals male who is uncomfortable. VITAL SIGNS: BP 187/112, pulse 59, respirations 16, 98% sat on room air. HEENT: Sclerae are anicteric. Pupils are reactive. CHEST: Clear to auscultation. CARDIAC: Reveals regular rate and rhythm. ABDOMEN: Soft. There is a right inguinal hernia that is tender to palpation. EXTREMITIES: Pulses are intact. ASSESSMENT: Incarcerated right inguinal hernia, reduced by manipulation at the bedside. The patient had leg drawn in and extended out to the side on the rail. I was able to palpate and reduce the hernia by manual pressure. The patient has had a significant relief of his pain. I have recommended that he see me in the office next week for urgent repair. There is no need for emergent repair tonight as the hernia is now reduced. The patient agrees to comply. Marquis Neumann MD MAF/rt , 11:26 PM , 12:14 AM
== END 2017-08-04 23:56 | disposition home or self-care (01) ==
LOC: NEPD 18:31
DX: K40.90 Unilateral inguinal hernia, without obstruction or gangrene, not specified as recurrent (principal); N43.3 Hydrocele, unspecified; I10 Essential (primary) hypertension
CPT/HCPCS: 74177; 80053; 83605; 85025; 85610; 85730; 96361; 96374; 96376; 99284; J2270; J7030; Q9967